=== PATIENT | female | born 1960 | race Caucasian/White ===

== ENCOUNTER 2017-01-28 06:03 | Day surgery (SDC) | payer OTHER ==
[~2017-01-28 06:03] MED LIST: ALKA-SELTZER P1 EACH PO; BAYER CHEWABLE81 M2 PO; BIAXIN500 M1 PO; BIAXIN500 MG PO; HYDROCHLOROTH12.5 M2 PO; HYDROCODON-ACE1 EAC8 PO; IRON325 MG PO; LISINOPRIL-HCTZ1 TAB PO; MIRALAX17 G2 PO; MUCINEX D ER T1 EAC1 PO; MUCINEX DM ER1 EAC1 PO; MULTIVITAMINS1 EAC6 PO; NO MEDS; NORCO 5/3251 TA1 PO; NORCO 7.5/325 T1 TAB PO; NORVASC5 M2 PO; OMEPRAZOLE40 M2 PO; QNASL8.7 GM NS; STOOL SOFTENER100 M3 PO; VENTOLIN HFA18 G2 PO; ZESTORETIC 10/11 TAB PO
[2017-01-28 07:16] LABS: ANION GAP 13 mmol/L (0-20); BLOOD UREA NITROGEN 13 mg/dl (6-24); CALCIUM 8.9 mg/dl (8.5-10.5); CARBON DIOXIDE-VENOUS 26 mmol/L (22-32); CHLORIDE 106 mmol/l (96-110); CREATININE 1.01 mg/dl (0.50-1.10); GLUCOSE 126 mg/dL (70-110); POTASSIUM 3.6 mmol/L (3.7-5.1); SODIUM 141 mmol/L (135-145); eGFR VALUE FOR BLACK 73 mL/Min
== END 2017-01-28 09:11 ==
LOC: ENDOS 06:03 → SHSB 06:05 → ENDOS 07:40
PROVIDERS: Anesthesiology
PROC: 0DBN8ZZ Excision of Sigmoid Colon, Via Natural or Artificial Opening Endoscopic (ICD-10-PCS; principal; 2017-01-28)
DX: Z12.11 Encounter for screening for malignant neoplasm of colon (principal); K64.1 Second degree hemorrhoids; D12.5 Benign neoplasm of sigmoid colon; K21.9 Gastro-esophageal reflux disease without esophagitis; E66.9 Obesity, unspecified; G47.30 Sleep apnea, unspecified; E11.9 Type 2 diabetes mellitus without complications; I10 Essential (primary) hypertension; Z79.82 Long term (current) use of aspirin; Z79.899 Other long term (current) drug therapy; Z88.2 Allergy status to sulfonamides; Z88.8 Allergy status to other drugs, medicaments and biological substances; Z91.040 Latex allergy status; Z90.89 Acquired absence of other organs; Z90.49 Acquired absence of other specified parts of digestive tract; Z98.890 Other specified postprocedural states